=== PATIENT | male | born 1980 | race Caucasian/White ===

== ENCOUNTER 2017-09-26 14:39 | Emergency (ER) | payer SELFPAY ==
[2017-09-26] MEDS ORDERED: Ibuprofen 800 MG TAB ONE (14:54)
[2017-09-26] MEDS ORDERED: Acetaminophen 500 MG TAB ONE (14:54)
[2017-09-26] MEDS ORDERED: Oseltamivir 75 MG CAP ONE (15:01)
== END 2017-09-26 15:10 | disposition home or self-care (01) ==
LOC: BURERS 14:39
DX: J11.1 Influenza due to unidentified influenza virus with other respiratory manifestations (principal)
CPT/HCPCS: 99283